=== PATIENT | female | born 1940 | race Caucasian/White ===

== ENCOUNTER 2018-06-20 07:34 | Day surgery (SDC) | payer MEDICARE, OTHER ==
[~2018-06-20 07:34] MED LIST: ACETAZOLAMIDE 250 MG PO ONE
[2018-06-20] MEDS: PHENYLEPHRINE HCL 10% OPHTHAL SOL ONE ×2 (07:55→08:07)
[2018-06-20] MEDS: TETRACAINE HCL 0.5 % 1 DROP SOL ONE ×3 (07:55→09:01)
[2018-06-20] MEDS: CYCLOPENTOLATE 1% SOL ONE ×2 (07:56→08:08)
[2018-06-20] MEDS: KETOROLAC 0.5% OPTH 60 DROP SOL ONE ×2 (07:56→08:08)
[2018-06-20 08:01] VITALS: O2SAT 98
[2018-06-20] MEDS ORDERED: MIDAZOLAM 2 MG/2 ML SOL ONE (08:25)
[2018-06-20] MEDS ORDERED: FENTANYL 100MCG/2ML SOL ONE (08:25)
[2018-06-20] MEDS ORDERED: BSS 500 ML 500 ML IR ONE (08:55)
[2018-06-20] MEDS ORDERED: POVIDONE IODINE 5% SOL ONE (08:55)
[2018-06-20] MEDS ORDERED: IMPRIMIS ONE (08:55)
[2018-06-20] MEDS ORDERED: LIDOCAINE HCL 1% MPF 30 SOL ONE (08:55)
[2018-06-20 09:26] VITALS: BP 141/76; PULSE 81; RESP 20; TEMP 96.8
== END 2018-06-20 09:46 | disposition home or self-care (01) | DRG 125 ==
LOC: SURG 07:34
PROVIDERS: ATTEND Ophthalmology
DX: H25.89 Other age-related cataract (principal)
CPT/HCPCS: J2250; J3010; A9270-GY; J2001